=== PATIENT | male | born 1970 | race Caucasian/White ===

== ENCOUNTER 2020-08-26 10:54 | Inpatient (IN) | payer OTHER ==
[2020-08-26 11:31] VITALS: BMI 28.3
[2020-08-26] MEDS ORDERED: IBUPROFEN 400 MG TABLET (FP) PO PRN (11:59)
[2020-08-26] MEDS ORDERED: MAGNESIUM CITRATE 300 ML BOTTLE PO PRN (11:59)
[2020-08-26] MEDS ORDERED: MENTHOL/PHENOL 1 EACH UD MM PRN (11:59)
[2020-08-26] MEDS ORDERED: ACETAMINOPHEN 325 MG TABLET (FP) PO PRN ×2 (11:59)
[2020-08-26] MEDS ORDERED: NICOTINE POLACRILEX 2 MG GUM BUC PRN (11:59)
[2020-08-26] MEDS ORDERED: MAG HYDROX/AL HYDROX/SIMETH 30 ML UNIT-DOSE CUP PO PRN (11:59)
[2020-08-26] MEDS ORDERED: MAGNESIUM HYDROX 2400MG/30ML ORAL SUSPENSION 30 ML CUP PO PRN (11:59)
[2020-08-26 13:55] LABS: HEMATOCRIT 41.9 % (35.4-49); HEMOGLOBIN 14.3 GM/dL (11.7-16.9); MCH 29.7 pg (25.7-33.7); MEAN CELL VOLUME 87.2 fl (80-96); PLATELET COUNT 254 K/MM3 (134-434); RBC 4.81 M/mm3 (4.00-5.60); RDW 13.5 % (11.9-15.9); WHITE BLOOD COUNT 4.3 K/mm3 (4.0-10.0)
[2020-08-26] MEDS ORDERED: hydrOXYzine PAMOATE 25 MG CAPSULE (FP) PO SCH (14:00)
[2020-08-26 14:16] LABS: POTASSIUM 4.1 mmol/L (3.5-5.1)
[2020-08-26 14:17] LABS: CALCIUM 8.7 mg/dL (8.5-10.1)
[2020-08-26 14:18] LABS: ALBUMIN 4.2 g/dl (3.4-5.0); BLOOD UREA NITROGEN 10.2 mg/dL (7-18)
[2020-08-26 14:21] LABS: CREATININE 0.9 mg/dL (0.55-1.3)
[2020-08-26 14:23] LABS: BILIRUBIN,TOTAL 0.4 mg/dL (0.2-1); TOT PROT 7.7 g/dl (6.4-8.2)
[2020-08-26] MEDS: chlordiazePOXIDE HCL 25 MG CAPSULE PO PRN ×2 (14:35→20:22)
[2020-08-26] MEDS: chlordiazePOXIDE HCL 25 MG CAPSULE PO SCH ×2 (17:33→22:15)
[2020-08-26] MEDS: hydrOXYzine PAMOATE 25 MG CAPSULE (FP) PO PRN (20:22)
[2020-08-26] MEDS: THIAMINE HCL 100 MG TABLET (FP) PO SCH (22:14)
[2020-08-26] MEDS: MELATONIN 5 MG TABLETS PO SCH (22:15)
[2020-08-26] MEDS: BUPRENORPHINE/NALOXONE 8 MG/2 MG FILM PACKET SL SCH (22:15)
[2020-08-26] MEDS: METHOCARBAMOL 500 MG TABLET PO PRN (23:44)
[2020-08-27] MEDS: chlordiazePOXIDE HCL 25 MG CAPSULE PO PRN ×3 (00:38→12:52)
[2020-08-27] MEDS: hydrOXYzine PAMOATE 25 MG CAPSULE (FP) PO PRN ×4 (00:39→19:47)
[2020-08-27] MEDS: chlordiazePOXIDE HCL 25 MG CAPSULE PO SCH ×4 (05:52→23:05)
[2020-08-27] MEDS: ONDANSETRON *ODT* 4 MG TABLET SL PRN (08:30)
[2020-08-27] MEDS: BISMUTH SUBSALICYLATE 262 MG/15 ML BTL PO PRN ×3 (08:31→12:54)
[2020-08-27] MEDS: PRENATAL VITAMINS W/ FOLIC ACID TABLET (FP) PO SCH (10:16)
[2020-08-27] MEDS: BUPRENORPHINE/NALOXONE 8 MG/2 MG FILM PACKET SL SCH ×2 (10:17→23:05)
[2020-08-27] MEDS: METHOCARBAMOL 500 MG TABLET PO PRN (10:21)
[2020-08-27] MEDS: THIAMINE HCL 100 MG TABLET (FP) PO SCH (23:05)
[2020-08-27] MEDS: MELATONIN 5 MG TABLETS PO SCH (23:05)
[2020-08-28] MEDS: chlordiazePOXIDE HCL 25 MG CAPSULE PO SCH ×4 (05:29→22:03)
[2020-08-28] MEDS: BUPRENORPHINE/NALOXONE 8 MG/2 MG FILM PACKET SL SCH ×2 (10:02→22:03)
[2020-08-28] MEDS: PRENATAL VITAMINS W/ FOLIC ACID TABLET (FP) PO SCH (10:02)
[2020-08-28] MEDS: hydrOXYzine PAMOATE 25 MG CAPSULE (FP) PO PRN ×4 (10:02→22:05)
[2020-08-28] MEDS: METHOCARBAMOL 500 MG TABLET PO PRN ×2 (10:02→17:16)
[2020-08-28] MEDS: ONDANSETRON *ODT* 4 MG TABLET SL PRN (10:03)
[2020-08-28] MEDS: chlordiazePOXIDE HCL 25 MG CAPSULE PO PRN (13:53)
[2020-08-28] MEDS: MELATONIN 5 MG TABLETS PO SCH (22:02)
[2020-08-28] MEDS: THIAMINE HCL 100 MG TABLET (FP) PO SCH (22:02)
[2020-08-29] MEDS: chlordiazePOXIDE HCL 10 MG CAPSULE PO PRN ×2 (03:54→07:56)
[2020-08-29] MEDS: METHOCARBAMOL 500 MG TABLET PO PRN ×2 (03:55→10:18)
[2020-08-29] MEDS: hydrOXYzine PAMOATE 25 MG CAPSULE (FP) PO PRN ×3 (03:55→10:17)
[2020-08-29] MEDS: chlordiazePOXIDE HCL 10 MG CAPSULE PO SCH ×2 (05:49→10:16)
[2020-08-29] MEDS: PRENATAL VITAMINS W/ FOLIC ACID TABLET (FP) PO SCH (10:16)
[2020-08-29] MEDS: BUPRENORPHINE/NALOXONE 8 MG/2 MG FILM PACKET SL SCH (10:16)
[2020-08-29 13:35] VITALS: BP 120/81; PULSE 76; TEMP 98
[2020-08-30] MEDS ORDERED: chlordiazePOXIDE HCL 10 MG CAPSULE PO SCH (05:00)
[2020-08-31] MEDS ORDERED: chlordiazePOXIDE HCL 10 MG CAPSULE PO ONE (05:00)
== END 2020-08-29 14:29 | disposition left against medical advice (07) | DRG 770 ==
LOC: YASAS 10:54 → Y3N 12:03
PROVIDERS: ADMIT Allergy & Immunology; ATTEND Allergy & Immunology
PROC: HZ2ZZZZ Detoxification Services for Substance Abuse Treatment (ICD-10-PCS; principal; 2020-08-26)
DX: F10.230 Alcohol dependence with withdrawal, uncomplicated (principal); F11.20 Opioid dependence, uncomplicated; F14.10 Cocaine abuse, uncomplicated; F17.210 Nicotine dependence, cigarettes, uncomplicated; F19.24 Other psychoactive substance dependence with psychoactive substance-induced mood disorder; F43.10 Post-traumatic stress disorder, unspecified; F41.9 Anxiety disorder, unspecified; F32.9 Major depressive disorder, single episode, unspecified; K21.9 Gastro-esophageal reflux disease without esophagitis; M54.5 Low back pain; G89.29 Other chronic pain; Z87.19 Personal history of other diseases of the digestive system; Z90.49 Acquired absence of other specified parts of digestive tract; Z88.1 Allergy status to other antibiotic agents
CPT/HCPCS: 36415; 80053; 85027; 86780; 93005; 93010; C9803; Q0162; U0003

== ENCOUNTER 2021-05-16 11:52 | Inpatient (IN) | payer OTHER ==
[2021-05-16 12:53] VITALS: BMI 25.7
[2021-05-16] MEDS ORDERED: BISMUTH SUBSALICYLATE 524 MG/30 ML PO PRN (14:55)
[2021-05-16] MEDS ORDERED: METHOCARBAMOL 500 MG TABLET PO PRN (14:55)
[2021-05-16] MEDS ORDERED: MENTHOL/PHENOL 1 EACH UD MM PRN (14:55)
[2021-05-16] MEDS ORDERED: MAGNESIUM CITRATE 300 ML BOTTLE PO PRN (14:55)
[2021-05-16] MEDS ORDERED: ACETAMINOPHEN 325 MG TABLET (FP) PO PRN ×2 (14:55)
[2021-05-16] MEDS ORDERED: MAG HYDROX/AL HYDROX/SIMETH 30 ML UNIT-DOSE CUP PO PRN (14:55)
[2021-05-16] MEDS ORDERED: IBUPROFEN 400 MG TABLET (FP) PO PRN (14:55)
[2021-05-16] MEDS ORDERED: MAGNESIUM HYDROX 2400MG/30ML ORAL SUSPENSION 30 ML CUP PO PRN (14:55)
[2021-05-16] MEDS ORDERED: hydrOXYzine PAMOATE 25 MG CAPSULE (FP) PO ONE (16:55)
[2021-05-16] MEDS ORDERED: diazePAM 5 MG TABLET ONE (16:55)
[2021-05-16] MEDS: diazePAM 5 MG TABLET PO SCH ×2 (16:57→22:24)
[2021-05-16] MEDS: hydrOXYzine PAMOATE 25 MG CAPSULE (FP) PO SCH ×2 (17:52→22:23)
[2021-05-16] MEDS: diazePAM 5 MG TABLET PO PRN (19:36)
[2021-05-16] MEDS: NICOTINE 10 MG CARTRIDGE (INHALER) IH PRN (22:23)
[2021-05-16] MEDS: MELATONIN 5 MG TABLETS PO SCH (22:23)
[2021-05-16] MEDS: THIAMINE HCL 100 MG TABLET (FP) PO SCH (22:23)
[2021-05-16] MEDS: BUPRENORPHINE/NALOXONE 8 MG/2 MG FILM PACKET SL SCH (22:26)
[2021-05-17] MEDS: diazePAM 5 MG TABLET PO PRN ×3 (05:42→19:51)
[2021-05-17] MEDS: hydrOXYzine PAMOATE 25 MG CAPSULE (FP) PO SCH ×5 (05:43→22:09)
[2021-05-17] MEDS: diazePAM 5 MG TABLET PO SCH ×4 (06:54→22:09)
[2021-05-17] MEDS: ONDANSETRON *ODT* 4 MG TABLET SL PRN (10:34)
[2021-05-17] MEDS: BUPRENORPHINE/NALOXONE 8 MG/2 MG FILM PACKET SL SCH ×2 (10:35→22:11)
[2021-05-17] MEDS: PRENATAL VITAMINS W/ FOLIC ACID TABLET (FP) PO SCH (10:35)
[2021-05-17] MEDS: NICOTINE 10 MG CARTRIDGE (INHALER) IH PRN ×3 (10:36→22:13)
[2021-05-17 12:15] LABS: MCH 30.2 pg (25.7-33.7); MCHC 34.9 g/dl (32.0-35.9); MEAN CELL VOLUME 86.5 fl (80-96); MEAN PLT VOLUME 8.1 fl (7.5-11.1); PLATELET COUNT 231 10^3/uL (134-434); RBC 4.62 M/mm3 (4.00-5.60); RDW 12.7 % (11.9-15.9); WHITE BLOOD COUNT 4.8 K/mm3 (4.0-10.0)
[2021-05-17 12:22] LABS: ALBUMIN 3.3 g/dl (3.4-5.0); BLOOD UREA NITROGEN 10.6 mg/dL (7-18)
[2021-05-17 12:23] LABS: CALCIUM 8.9 mg/dL (8.5-10.1)
[2021-05-17 12:25] LABS: BILIRUBIN,TOTAL 1.2 mg/dL (0.2-1); CREATININE 0.7 mg/dL (0.55-1.3); TOT PROT 6.6 g/dl (6.4-8.2)
[2021-05-17] MEDS: MELATONIN 5 MG TABLETS PO SCH (22:09)
[2021-05-17] MEDS: THIAMINE HCL 100 MG TABLET (FP) PO SCH (22:09)
[2021-05-18] MEDS: ONDANSETRON *ODT* 4 MG TABLET SL PRN (01:22)
[2021-05-18] MEDS: diazePAM 5 MG TABLET PO PRN ×3 (03:43→17:40)
[2021-05-18] MEDS: diazePAM 5 MG TABLET PO SCH ×3 (05:27→22:09)
[2021-05-18] MEDS: hydrOXYzine PAMOATE 25 MG CAPSULE (FP) PO SCH ×5 (05:27→22:09)
[2021-05-18] MEDS: NICOTINE 10 MG CARTRIDGE (INHALER) IH PRN ×3 (05:28→14:59)
[2021-05-18] MEDS: BUPRENORPHINE/NALOXONE 8 MG/2 MG FILM PACKET SL SCH ×2 (10:32→22:08)
[2021-05-18] MEDS: PRENATAL VITAMINS W/ FOLIC ACID TABLET (FP) PO SCH (10:32)
[2021-05-18] MEDS: MELATONIN 5 MG TABLETS PO SCH (22:08)
[2021-05-18] MEDS: THIAMINE HCL 100 MG TABLET (FP) PO SCH (22:09)
[2021-05-18 22:34] LABS: HIV INTERPRETATION NEGATIVE (NEGATIVE)
[2021-05-19] MEDS: hydrOXYzine PAMOATE 25 MG CAPSULE (FP) PO SCH ×5 (05:29→22:07)
[2021-05-19] MEDS: diazePAM 5 MG TABLET PO SCH ×2 (05:29→17:23)
[2021-05-19] MEDS: NICOTINE 10 MG CARTRIDGE (INHALER) IH PRN ×4 (05:30→22:09)
[2021-05-19] MEDS: PRENATAL VITAMINS W/ FOLIC ACID TABLET (FP) PO SCH (10:29)
[2021-05-19] MEDS: BUPRENORPHINE/NALOXONE 8 MG/2 MG FILM PACKET SL SCH ×2 (10:29→22:07)
[2021-05-19] MEDS: diazePAM 5 MG TABLET PO PRN (10:30)
[2021-05-19] MEDS: MELATONIN 5 MG TABLETS PO SCH (22:07)
[2021-05-19] MEDS: THIAMINE HCL 100 MG TABLET (FP) PO SCH (22:07)
[2021-05-20] MEDS: hydrOXYzine PAMOATE 25 MG CAPSULE (FP) PO SCH ×2 (05:05→10:00)
[2021-05-20] MEDS: NICOTINE 10 MG CARTRIDGE (INHALER) IH PRN (05:06)
[2021-05-20] MEDS ORDERED: diazePAM 5 MG TABLET PO ONE (06:00)
[2021-05-20 09:03] VITALS: BP 122/74; PULSE 68; TEMP 96.8
[2021-05-20] MEDS: BUPRENORPHINE/NALOXONE 8 MG/2 MG FILM PACKET SL SCH (09:41)
[2021-05-20] MEDS: PRENATAL VITAMINS W/ FOLIC ACID TABLET (FP) PO SCH (09:43)
== END 2021-05-20 09:44 | disposition home or self-care (01) | DRG 773 ==
LOC: YASAS 11:52 → Y3N 18:47
PROVIDERS: ADMIT Allergy & Immunology; ATTEND Allergy & Immunology
PROC: HZ2ZZZZ Detoxification Services for Substance Abuse Treatment (ICD-10-PCS; principal; 2021-05-16)
DX: F10.230 Alcohol dependence with withdrawal, uncomplicated (principal); F11.20 Opioid dependence, uncomplicated; F13.230 Sedative, hypnotic or anxiolytic dependence with withdrawal, uncomplicated; F14.20 Cocaine dependence, uncomplicated; F17.210 Nicotine dependence, cigarettes, uncomplicated; F19.24 Other psychoactive substance dependence with psychoactive substance-induced mood disorder; F19.282 Other psychoactive substance dependence with psychoactive substance-induced sleep disorder; B18.2 Chronic viral hepatitis C; K21.9 Gastro-esophageal reflux disease without esophagitis; Z88.1 Allergy status to other antibiotic agents; Z56.0 Unemployment, unspecified
CPT/HCPCS: 36415; 80053; 85027; 86780; 87389; C9803; Q0162; U0003; U0005

== ENCOUNTER 2024-02-08 09:34 | Inpatient (IN) | payer OTHER ==
[2024-02-08 10:01] VITALS: BMI 26.6
[2024-02-08] MEDS ORDERED: DICYCLOMINE HCL 10 MG CAPSULE PO PRN (10:27)
[2024-02-08] MEDS ORDERED: LOPERAMIDE HCL 2 MG CAPSULE PO PRN (10:27)
[2024-02-08] MEDS ORDERED: guaiFENesin 600 MG TABLET.ER (FP) PO PRN (10:27)
[2024-02-08] MEDS ORDERED: IBUPROFEN 400 MG TABLET (FP) PO PRN (10:27)
[2024-02-08] MEDS ORDERED: NALOXONE HCL 0.4 MG/ML VIAL IM PRN (10:27)
[2024-02-08] MEDS ORDERED: NALOXONE (NARCAN) HCL 4 MG/0.1 ML SPRAY NS PRN (10:27)
[2024-02-08] MEDS ORDERED: ACETAMINOPHEN 325 MG TABLET (FP) PO PRN (10:27)
[2024-02-08] MEDS ORDERED: POLYETHYLENE GLYCOL (HEALTHYLAX) 3350 17 GM PACKET PO PRN (10:27)
[2024-02-08] MEDS ORDERED: BENZONATATE 200 MG CAPSULE PO PRN (10:27)
[2024-02-08] MEDS ORDERED: MAGNESIUM HYDROX 2400MG/30ML ORAL SUSPENSION 30 ML CUP PO PRN (10:27)
[2024-02-08] MEDS ORDERED: BENZOCAINE/MENTHOL (CHLORASEPTIC ) LOZENGE MM PRN (10:27)
[2024-02-08] MEDS ORDERED: BISMUTH SUBSALICYLATE 262 MG/15 ML BTL PO PRN (10:27)
[2024-02-08] MEDS ORDERED: MAG HYDROX/AL HYDROX/SIMETH 30 ML UNIT-DOSE CUP PO PRN (10:27)
[2024-02-08] MEDS ORDERED: IBUPROFEN 600 MG TABLET (FP) PO PRN (10:27)
[2024-02-08] MEDS ORDERED: chlordiazePOXIDE HCL 25 MG CAPSULE ONE (11:09)
[2024-02-08] MEDS ORDERED: NICOTINE 14 MG/24 HOURS TOPICAL PATCH TD ONE (11:10)
[2024-02-08] MEDS ORDERED: PRENATAL VITAMINS W/ FOLIC ACID TABLET (FP) PO ONE (11:10)
[2024-02-08] MEDS: chlordiazePOXIDE HCL 25 MG CAPSULE PO SCH (11:14)
[2024-02-08] MEDS: NICOTINE 14 MG/24 HOURS TOPICAL PATCH TD SCH (11:14)
[2024-02-08] MEDS: PRENATAL VITAMINS W/ FOLIC ACID TABLET (FP) PO SCH (11:14)
[2024-02-08] MEDS: chlordiazePOXIDE HCL 25 MG CAPSULE PO PRN (14:43)
[2024-02-08] MEDS: ONDANSETRON *ODT* 4 MG TABLET SL PRN (17:28)
[2024-02-08] MEDS: THIAMINE 100 MG TABLET PO SCH (22:33)
[2024-02-08] MEDS: MELATONIN 5 MG TABLETS PO SCH (22:33)
[2024-02-09] MEDS: METHOCARBAMOL 500 MG TABLET PO PRN (05:45)
[2024-02-09] MEDS: cloNIDine HCL 0.1 MG TABLET PO ONE (07:42)
[2024-02-09] MEDS: BUPRENORPHINE/NALOXONE 8 MG/2 MG FILM PACKET SL SCH (10:17)
[2024-02-09 12:01] LABS: CHLORIDE 99 mmol/L (98-107); POTASSIUM 3.7 mmol/L (3.5-5.1); SODIUM 136 mmol/L (136-145)
[2024-02-09 12:04] LABS: HEMATOCRIT 39.1 % (35.4-49); HEMOGLOBIN 13.5 GM/dL (11.7-16.9); MCH 30.7 pg (25.7-33.7); MCHC 34.4 g/dl (32.0-35.9); MEAN CELL VOLUME 89.3 fl (80-96); MEAN PLT VOLUME 8.5 fl (7.5-11.1); PLATELET COUNT 144 10^3/uL (134-434); RBC 4.38 M/mm3 (4.00-5.60); RDW 13.5 % (11.9-15.9); WHITE BLOOD COUNT 4.1 K/mm3 (4.0-10.0)
[2024-02-09 12:08] LABS: CALCIUM 9.4 mg/dL (8.5-10.1)
[2024-02-09 12:09] LABS: ALBUMIN 4.1 g/dl (3.4-5.0); ANION GAP 4 mmol/L (4-13); BLOOD UREA NITROGEN 7.6 mg/dL (7-18); CO2 33 mmol/L (21-32); GLUCOSE,RANDOM 94 mg/dL (74-106)
[2024-02-09 12:10] LABS: SGPT/ALT 45 U/L (13-61)
[2024-02-09 12:12] LABS: CREATININE 0.7 mg/dL (0.55-1.3)
[2024-02-09 12:13] LABS: ALK PHOS 96 U/L (45-117); BILIRUBIN,TOTAL 1.3 mg/dL (0.2-1); SGOT/AST 56 U/L (15-37); TOT PROT 7.2 g/dl (6.4-8.2)
[2024-02-09] MEDS: hydrOXYzine PAMOATE 25 MG CAPSULE (FP) PO PRN (12:44)
[2024-02-09] MEDS: cloNIDine HCL 0.1 MG TABLET PO PRN (13:56)
[2024-02-09] MEDS: SUVOREXANT 10 MG TABLET PO PRN (22:47)
[2024-02-10] MEDS: chlordiazePOXIDE HCL 25 MG CAPSULE PO SCH (05:00)
[2024-02-10 12:29] VITALS: BP 145/103; PULSE 87; RESP 18; TEMP 97.7
[2024-02-11] MEDS ORDERED: chlordiazePOXIDE HCL 10 MG CAPSULE PO PRN
[2024-02-11] MEDS ORDERED: chlordiazePOXIDE HCL 10 MG CAPSULE PO SCH (05:00)
[2024-02-12] MEDS ORDERED: chlordiazePOXIDE HCL 10 MG CAPSULE PO SCH (05:00)
[2024-02-13] MEDS ORDERED: chlordiazePOXIDE HCL 10 MG CAPSULE PO ONE (05:00)
== END 2024-02-10 12:40 | disposition home or self-care (01) | DRG 773 ==
LOC: YASAS 09:34 → Y6N 10:44
PROVIDERS: ADMIT Allergy & Immunology; ATTEND Surgery
PROC: HZ2ZZZZ Detoxification Services for Substance Abuse Treatment (ICD-10-PCS; principal; 2024-02-08)
DX: F10.230 Alcohol dependence with withdrawal, uncomplicated (principal); F11.20 Opioid dependence, uncomplicated; F12.20 Cannabis dependence, uncomplicated; F17.210 Nicotine dependence, cigarettes, uncomplicated; F10.282 Alcohol dependence with alcohol-induced sleep disorder; F10.280 Alcohol dependence with alcohol-induced anxiety disorder; F10.24 Alcohol dependence with alcohol-induced mood disorder; F43.10 Post-traumatic stress disorder, unspecified; K21.9 Gastro-esophageal reflux disease without esophagitis
CPT/HCPCS: 36415; 80053; 80305; 80307; 85027; 86780; 93005; 93010; Q0162

== ENCOUNTER 2024-04-18 10:41 | Inpatient (IN) | payer OTHER ==
[2024-04-18 11:15] VITALS: BMI 27.2
[2024-04-18] MEDS ORDERED: guaiFENesin 600 MG TABLET.ER (FP) PO PRN (11:51)
[2024-04-18] MEDS ORDERED: BENZOCAINE/MENTHOL (CHLORASEPTIC ) LOZENGE MM PRN (11:51)
[2024-04-18] MEDS ORDERED: MAGNESIUM HYDROX 2400MG/30ML ORAL SUSPENSION 30 ML CUP PO PRN (11:51)
[2024-04-18] MEDS ORDERED: POLYETHYLENE GLYCOL (HEALTHYLAX) 3350 17 GM PACKET PO PRN (11:51)
[2024-04-18] MEDS ORDERED: LOPERAMIDE HCL 2 MG CAPSULE PO PRN (11:51)
[2024-04-18] MEDS ORDERED: NALOXONE HCL 0.4 MG/ML VIAL IM PRN (11:51)
[2024-04-18] MEDS ORDERED: BISMUTH SUBSALICYLATE 524 MG/30 ML PO PRN (11:51)
[2024-04-18] MEDS ORDERED: DICYCLOMINE HCL 10 MG CAPSULE PO PRN (11:51)
[2024-04-18] MEDS ORDERED: BENZONATATE 200 MG CAPSULE PO PRN (11:51)
[2024-04-18] MEDS ORDERED: ACETAMINOPHEN 325 MG TABLET (FP) PO PRN (11:51)
[2024-04-18] MEDS ORDERED: NALOXONE (NARCAN) HCL 4 MG/0.1 ML SPRAY NS PRN (11:51)
[2024-04-18] MEDS ORDERED: PRENATAL VITAMINS W/ FOLIC ACID TABLET (FP) PO ONE (12:17)
[2024-04-18] MEDS: PRENATAL VITAMINS W/ FOLIC ACID TABLET (FP) PO SCH (12:19)
[2024-04-18] MEDS: ONDANSETRON *ODT* 4 MG TABLET SL PRN (18:14)
[2024-04-18] MEDS: chlordiazePOXIDE HCL 25 MG CAPSULE PO ONE (18:51)
[2024-04-18] MEDS: chlordiazePOXIDE HCL 25 MG CAPSULE PO PRN (20:49)
[2024-04-18] MEDS: MELATONIN 5 MG TABLETS PO SCH (22:40)
[2024-04-18] MEDS: THIAMINE 100 MG TABLET PO SCH (22:40)
[2024-04-18] MEDS: chlordiazePOXIDE HCL 25 MG CAPSULE PO SCH (22:41)
[2024-04-19] MEDS: levETIRAcetam 500 MG TABLET (FP) PO SCH (00:23)
[2024-04-19] MEDS: METHOCARBAMOL 500 MG TABLET PO PRN (05:37)
[2024-04-19] MEDS: hydrOXYzine PAMOATE 25 MG CAPSULE (FP) PO PRN (10:21)
[2024-04-19] MEDS: IBUPROFEN 600 MG TABLET (FP) PO PRN (10:25)
[2024-04-19 10:26] LABS: CALCIUM 8.7 mg/dL (8.5-10.1); HEMATOCRIT 41.1 % (35.4-49); MCH 31.3 pg (25.7-33.7); MEAN PLT VOLUME 8.1 fl (7.5-11.1); PLATELET COUNT 233 10^3/uL (134-434); RBC 4.46 M/mm3 (4.00-5.60); RDW 13.5 % (11.9-15.9); WHITE BLOOD COUNT 3.6 K/mm3 (4.0-10.0)
[2024-04-19 10:27] LABS: ALBUMIN 3.9 g/dl (3.4-5.0); BLOOD UREA NITROGEN 10.8 mg/dL (7-18)
[2024-04-19 10:30] LABS: CREATININE 0.6 mg/dL (0.55-1.3)
[2024-04-19 10:31] LABS: TOT PROT 7.1 g/dl (6.4-8.2)
[2024-04-19 10:59] LABS: BILIRUBIN,TOTAL 0.4 mg/dL (0.2-1)
[2024-04-19] MEDS: POTASSIUM CHLORIDE ORAL LIQUID 20 MEQ/15 ML PO SCH (11:44)
[2024-04-19] MEDS: LACTULOSE 20 GM/30 ML UDC (FOR ORAL USE ONLY) PO SCH (13:34)
[2024-04-20] MEDS: chlordiazePOXIDE HCL 25 MG CAPSULE PO SCH (05:31)
[2024-04-20] MEDS: MAG HYDROX/AL HYDROX/SIMETH 30 ML UNIT-DOSE CUP PO PRN (11:28)
[2024-04-20] MEDS: IBUPROFEN 400 MG TABLET (FP) PO PRN (22:16)
[2024-04-21] MEDS ORDERED: chlordiazePOXIDE HCL 10 MG CAPSULE PO PRN
[2024-04-21] MEDS: chlordiazePOXIDE HCL 10 MG CAPSULE PO SCH (05:23)
[2024-04-21 18:06] VITALS: RESP 16
[2024-04-21 18:15] VITALS: BP 154/108; PULSE 109; TEMP 98.6
[2024-04-22] MEDS ORDERED: chlordiazePOXIDE HCL 10 MG CAPSULE PO SCH (05:00)
[2024-04-23] MEDS ORDERED: chlordiazePOXIDE HCL 10 MG CAPSULE PO ONE (05:00)
== END 2024-04-21 18:20 | disposition home or self-care (01) | DRG 775 ==
LOC: YASAS 10:41 → Y6N 12:28
PROVIDERS: ADMIT Allergy & Immunology; ATTEND Surgery
PROC: HZ2ZZZZ Detoxification Services for Substance Abuse Treatment (ICD-10-PCS; principal; 2024-04-18)
DX: F10.230 Alcohol dependence with withdrawal, uncomplicated (principal); F17.210 Nicotine dependence, cigarettes, uncomplicated; F10.280 Alcohol dependence with alcohol-induced anxiety disorder; F10.282 Alcohol dependence with alcohol-induced sleep disorder; F43.10 Post-traumatic stress disorder, unspecified; E72.20 Disorder of urea cycle metabolism, unspecified; E87.6 Hypokalemia; K21.9 Gastro-esophageal reflux disease without esophagitis; Z88.1 Allergy status to other antibiotic agents
CPT/HCPCS: 36415; 80053; 80305; 80307; 82140; 84132; 85027; 86780; Q0162

== ENCOUNTER 2024-09-08 14:53 | Inpatient (IN) | payer OTHER ==
[2024-09-08 16:32] LABS: BASO % 0.7 % (0-2.0); EOS % 0.9 % (0-4.5); HEMATOCRIT 40.5 % (35.4-49); HEMOGLOBIN 13.7 GM/dL (11.7-16.9); LYMPH % 18.1 % (8-40); MCH 29.7 pg (25.7-33.7); MCHC 33.8 g/dl (32.0-35.9); MEAN CELL VOLUME 87.9 fl (80-96); MEAN PLT VOLUME 7.9 fl (7.5-11.1); MONO % 13.8 % (3.8-10.2); NEUT % 66.5 % (42.8-82.8); PLATELET COUNT 207 10^3/uL (134-434); RBC 4.61 M/mm3 (4.00-5.60); RDW 12.9 % (11.9-15.9); WHITE BLOOD COUNT 4.4 K/mm3 (4.0-10.0)
[2024-09-08 16:33] LABS: VENOUS BASE EXCESS 1.3 mmol/L (-2-2); VENOUS O2 SATURATION 88.9 % (70-80); VENOUS PCO2 42.7 mmHg (38-52); VENOUS PH 7.406 (7.310-7.410)
[2024-09-08 16:53] LABS: POTASSIUM 4.2 mmol/L (3.5-5.1)
[2024-09-08 16:56] LABS: BLOOD UREA NITROGEN 9.8 mg/dL (7-18); CALCIUM 9.3 mg/dL (8.5-10.1)
[2024-09-08 16:57] LABS: ALBUMIN 3.8 g/dl (3.4-5.0)
[2024-09-08] MEDS ORDERED: HALOPERIDOL LACTATE 5 MG/ML ONE ×2 (16:59→22:11)
[2024-09-08 17:00] LABS: CREATININE 0.7 mg/dL (0.55-1.3)
[2024-09-08 17:01] LABS: BILIRUBIN,TOTAL 0.7 mg/dL (0.2-1); TOT PROT 7.1 g/dl (6.4-8.2)
[2024-09-08] MEDS: HALOPERIDOL LACTATE 5 MG/ML IM ONE ×2 (18:25→22:24)
[2024-09-08] MEDS ORDERED: MIDAZOLAM HCL 5 MG/1 ML Single Dose Vial ONE (19:25)
[2024-09-08] MEDS: MIDAZOLAM HCL 5 MG/1 ML Single Dose Vial IM ONE (19:26)
[2024-09-08] MEDS: MIDAZOLAM HCL 5 MG/1 ML Single Dose Vial IVPUSH ONE (19:42)
[2024-09-08] MEDS ORDERED: PHENobarbital SODIUM 65 MG/1 ML VIAL ONE ×2 (21:03→22:04)
[2024-09-08] MEDS: PHENobarbital SODIUM 65 MG/1 ML VIAL IM ONE ×2 (21:30→22:43)
[2024-09-08] MEDS: THIAMINE HCL 200 MG/2 ML VIAL IVPB ONE (21:31)
[2024-09-08] MEDS ORDERED: LORazepam 2 MG/ML SDV VIAL ONE (22:11)
[2024-09-08] MEDS: KETAMINE HCL 200 MG/20 ML VIAL IM ONE (22:43)
[2024-09-09 03:45] VITALS: BMI 27.3
[2024-09-09] MEDS: FOLIC ACID INJECTION - 1 MG, THIAMINE HCL 100 MG, MULTIVIT INJECTION ADULT 10 ML in SOD... IVPB ONE (05:00)
[2024-09-09] MEDS: PHENobarbital SODIUM 65 MG/1 ML VIAL IVPUSH SCH (05:55)
[2024-09-09 07:04] LABS: POTASSIUM 4.2 mmol/L (3.5-5.1)
[2024-09-09 07:08] LABS: CALCIUM 9.4 mg/dL (8.5-10.1)
[2024-09-09 07:09] LABS: ALBUMIN 3.7 g/dl (3.4-5.0); BLOOD UREA NITROGEN 12.8 mg/dL (7-18); MAGNESIUM 1.8 mg/dL (1.8-2.4)
[2024-09-09 07:12] LABS: CREATININE 0.7 mg/dL (0.55-1.3); PHOSPHOROUS 5.5 mg/dL (2.5-4.9)
[2024-09-09 07:13] LABS: TOT PROT 6.6 g/dl (6.4-8.2)
[2024-09-09 07:17] LABS: HEMATOCRIT 40.9 % (35.4-49); MCH 30.2 pg (25.7-33.7); MCHC 34.1 g/dl (32.0-35.9); MEAN CELL VOLUME 88.7 fl (80-96); MEAN PLT VOLUME 8.8 fl (7.5-11.1); PLATELET COUNT 227 10^3/uL (134-434); RBC 4.61 M/mm3 (4.00-5.60); RDW 13.2 % (11.9-15.9); WHITE BLOOD COUNT 4.2 K/mm3 (4.0-10.0)
[2024-09-09] MEDS: ENOXAPARIN NA (PORCINE) 40 MG/0.4 ML DISP.SYRIN SQ SCH (09:25)
[2024-09-09] MEDS: MAGNESIUM OXIDE 400 MG TABLET (FP) PO ONE (10:20)
[2024-09-09] MEDS: THIAMINE HCL 200 MG/2 ML VIAL IVPB SCH (10:21)
[2024-09-09] MEDS: LACTATED RINGERS SOLUTION 1,000 ML/1,000 ML INFUS.BAG IV SCH (15:32)
[2024-09-09] MEDS ORDERED: LORazepam 2 MG/ML SDV VIAL IVPUSH PRN (23:54)
[2024-09-10 07:56] LABS: BASO % 1.1 % (0-2.0); EOS % 3.2 % (0-4.5); HEMATOCRIT 40.3 % (35.4-49); HEMOGLOBIN 13.3 GM/dL (11.7-16.9); LYMPH % 31.5 % (8-40); MCH 29.6 pg (25.7-33.7); MCHC 32.9 g/dl (32.0-35.9); MEAN CELL VOLUME 89.9 fl (80-96); MEAN PLT VOLUME 8.7 fl (7.5-11.1); NEUT % 48.2 % (42.8-82.8); PLATELET COUNT 212 10^3/uL (134-434); RBC 4.49 M/mm3 (4.00-5.60); RDW 12.9 % (11.9-15.9); WHITE BLOOD COUNT 4.4 K/mm3 (4.0-10.0)
[2024-09-10 08:21] LABS: POTASSIUM 4.7 mmol/L (3.5-5.1)
[2024-09-10 08:30] LABS: ALBUMIN 3.2 g/dl (3.4-5.0); MAGNESIUM 1.9 mg/dL (1.8-2.4)
[2024-09-10 08:33] LABS: CREATININE 0.7 mg/dL (0.55-1.3)
[2024-09-10 08:34] LABS: BILIRUBIN,TOTAL 0.8 mg/dL (0.2-1)
[2024-09-10 08:35] LABS: TOT PROT 6.2 g/dl (6.4-8.2)
[2024-09-10 08:48] LABS: INR 0.97 (0.83-1.09); PROTHROMBIN TIME (PATIENT) 10.7 SEC (9.7-13.0)
[2024-09-10 15:37] VITALS: BP 137/97; PULSE 83; RESP 19; TEMP 98.6
== END 2024-09-10 17:01 | disposition home or self-care (01) | DRG 774 ==
LOC: JER 14:53 → JERBED 23:47 → J4S 09-09 02:24
PROVIDERS: ADMIT Student in an Organized Health Care Education/Training Program; ATTEND Internal Medicine
PROC: HZ2ZZZZ Detoxification Services for Substance Abuse Treatment (ICD-10-PCS; principal; 2024-09-08)
DX: F10.231 Alcohol dependence with withdrawal delirium (principal); F14.90 Cocaine use, unspecified, uncomplicated; F43.10 Post-traumatic stress disorder, unspecified; I10 Essential (primary) hypertension; R44.3 Hallucinations, unspecified; R74.01 Elevation of levels of liver transaminase levels
CPT/HCPCS: 36415; 70450-TC; 80053; 80307; 82010; 82140; 82803; 83735; 84100; 85025; 85027; 85610; 86705; 86708; 86803; 87340; 87517; 87522; 99285-25

== ENCOUNTER 2025-05-09 10:16 | Inpatient (IN) | payer OTHER ==
[2025-05-09 10:32] VITALS: BMI 27.1
[2025-05-09] MEDS ORDERED: BENZONATATE 200 MG CAPSULE PO PRN (11:27)
[2025-05-09] MEDS ORDERED: POLYETHYLENE GLYCOL (HEALTHYLAX) 3350 17 GM PACKET PO PRN (11:27)
[2025-05-09] MEDS ORDERED: NALOXONE (NARCAN) HCL 4 MG/0.1 ML SPRAY NS PRN (11:27)
[2025-05-09] MEDS ORDERED: ACETAMINOPHEN 325 MG TABLET (FP) PO PRN (11:27)
[2025-05-09] MEDS ORDERED: DICYCLOMINE HCL 10 MG CAPSULE PO PRN (11:27)
[2025-05-09] MEDS ORDERED: MAGNESIUM HYDROX 2400MG/30ML ORAL SUSPENSION 30 ML CUP PO PRN (11:27)
[2025-05-09] MEDS ORDERED: MAG HYDROX/AL HYDROX/SIMETH 30 ML UNIT-DOSE CUP PO PRN (11:27)
[2025-05-09] MEDS ORDERED: guaiFENesin 600 MG TABLET.ER (FP) PO PRN (11:27)
[2025-05-09] MEDS ORDERED: BISMUTH SUBSALICYLATE 524 MG/30 ML PO PRN (11:27)
[2025-05-09] MEDS ORDERED: BENZOCAINE/MENTHOL (CHLORASEPTIC ) LOZENGE MM PRN (11:27)
[2025-05-09] MEDS ORDERED: IBUPROFEN 400 MG TABLET (FP) PO PRN (11:27)
[2025-05-09] MEDS ORDERED: LOPERAMIDE HCL 2 MG CAPSULE PO PRN (11:27)
[2025-05-09] MEDS ORDERED: NICOTINE 7 MG/24 HOURS TOPICAL PATCH TD ONE (11:59)
[2025-05-09] MEDS ORDERED: PRENATAL VITAMINS W/ FOLIC ACID TABLET (FP) PO ONE (11:59)
[2025-05-09] MEDS: NICOTINE 7 MG/24 HOURS TOPICAL PATCH TD SCH (12:03)
[2025-05-09] MEDS: PRENATAL VITAMINS W/ FOLIC ACID TABLET (FP) PO SCH (12:03)
[2025-05-09] MEDS: ACAMPROSATE CALCIUM 333 MG TABLET.DR PO SCH (13:37)
[2025-05-09] MEDS: IBUPROFEN 600 MG TABLET (FP) PO PRN (17:11)
[2025-05-09] MEDS: METHOCARBAMOL 500 MG TABLET PO PRN (17:11)
[2025-05-09] MEDS: hydrOXYzine PAMOATE 25 MG CAPSULE (FP) PO PRN (17:11)
[2025-05-09] MEDS: ONDANSETRON *ODT* 4 MG TABLET SL PRN (19:55)
[2025-05-09] MEDS: THIAMINE 100 MG TABLET PO SCH (23:04)
[2025-05-09] MEDS: MELATONIN 5 MG TABLETS PO SCH (23:04)
[2025-05-10 10:49] LABS: MCHC 33.5 g/dl (32.3-36.5); MEAN CELL VOLUME 93.0 fl (79.0-92.2); MEAN PLT VOLUME 11.4 fl (9.4-12.4); RDW 12.7 % (12.2-16.1)
[2025-05-10 11:07] LABS: GLUCOSE,RANDOM 129 mg/dL (74-106); TOT PROT 5.7 g/dl (6.4-8.2)
[2025-05-10 11:08] LABS: CO2 34 mmol/L (21-32)
[2025-05-10 11:10] LABS: ALK PHOS 83 U/L (40-150)
[2025-05-10 11:12] LABS: SGOT/AST 78 U/L (5-34); SGPT/ALT 34 U/L (0-55)
[2025-05-10 11:13] LABS: CREATININE 0.55 mg/dL (0.55-1.3)
[2025-05-10] MEDS: POTASSIUM CHLORIDE TABS 20 MEQ TABLET.ER (FP) PO SCH (13:14)
[2025-05-11 07:44] VITALS: RESP 16
[2025-05-11 09:23] VITALS: BP 136/100; PULSE 99; TEMP 98
== END 2025-05-11 10:11 | disposition home or self-care (01) | DRG 773 ==
LOC: YASAS 10:16 → Y6N 12:22
PROVIDERS: ADMIT Allergy & Immunology; ATTEND Student in an Organized Health Care Education/Training Program
PROC: HZ2ZZZZ Detoxification Services for Substance Abuse Treatment (ICD-10-PCS; principal; 2025-05-09)
DX: F10.230 Alcohol dependence with withdrawal, uncomplicated (principal); I10 Essential (primary) hypertension; K21.9 Gastro-esophageal reflux disease without esophagitis; F43.10 Post-traumatic stress disorder, unspecified; F11.20 Opioid dependence, uncomplicated; D64.9 Anemia, unspecified
CPT/HCPCS: 36415; 80053; 80305; 80307; 85027; 86780; 93005; 93010; Q0162